=== PATIENT | male | born 1945 | race Caucasian/White ===

== ENCOUNTER 2017-10-10 14:16 | Emergency (ER) | payer BC ==
[2017-10-10 15:29] VITALS: BP 124/59
--- NOTE | 2017-10-10 15:47 | UC ---
Respiratory Complaint HPI - HPI Summary HPI Summary: 72 y/o male presents to the urgent care c/o productive cough w/ yellowish phlegm and low grade fever since Saturday10/07/2017. symptoms started w/ a common cold and sore throat, but now his chest is very congested. sore throat is mild 2 /10. He has not taking anything to alleviate symptoms. Pt denies SOB, chest pain , wheezing, abdominal pain, dizziness, N/v/D. - History of Current Complaint Hx Obtained From: Patient Onset/Duration: Gradual Onset, Lasting Days - 4 days, Still Present, Worse Since - yesterday Timing: Constant Severity Initially: Mild Severity Currently: Moderate Pain Intensity: 2 - sore throat Pain Scale Used: 0-10 Numeric Character: Cough: Productive, Sputum Description: - yellowish Aggravating Factors: Recumbent Position Associated Signs And Symptoms: Positive: Fever - low grade fever at home, URI, Nasal Congestion - Risk Factors Pulmonary Embolism Risk Factors: Negative Cardiac Risk Factors: Negative Pseudomonas Risk Factors: Negative Tuberculosis Risk Factors: Negative <Cheyanne Hanna - Last Filed: 10/10/17 16:38> <Susan Miller - Last Filed: 10/10/17 16:46> - History of Current Complaint Chief Complaint: UCRespiratory Stated Complaint: CHEST/HEAD COLD/ FEVER Time Seen by Provider: 10/10/17 15:43 - Allergies/Home Medications Allergies/Adverse Reactions: Allergies Allergy/AdvReac Type Severity Reaction Status Date / Time No Known Allergies Allergy Verified 10/10/17 15:33 Home Medications: Home Medications Atorvastatin* [Lipitor 40 MG*] 20 mg PO 1700 10/10/17 [History Confirmed ] Calcium Carbonate [Calcium] 500 mg PO DAILY 10/10/17 [History Confirmed 10/10/17 ] Cholecalciferol TAB* [Vitamin D TAB*] 1,000 unit PO DAILY 10/10/17 [History Confirmed 10/10/17] Levothyroxine Sodium [Levoxyl] 175 mcg PO DAILY 10/10/17 [History Confirmed 08/23] Multivitamin [Multivitamins] 1 cap PO DAILY 10/10/17 [History Confirmed 10/10/17 ] PMH/Surg Hx/FS Hx/Imm Hx Previously Healthy: Yes Endocrine History: Hypothyroidism, Dyslipidemia Other Endocrine History: Vitamin D defficiency - Surgical History Surgery Procedure, Year, and Place: Right ankle repair 2009 - Family History Known Family History: Positive: Hypertension - Social History Occupation: Retired Lives: With Family Alcohol Use: None Substance Use Type: None Smoking Status (MU): Never Smoked Tobacco <Cheyanne Hanna - Last Filed: 10/10/17 16:38> Review of Systems Constitutional: Negative Skin: Negative Eyes: Negative ENT: Sore Throat, Nasal Discharge, Sinus Congestion Respiratory: Cough - productive w/ yellowish phlegm Cardiovascular: Negative Gastrointestinal: Negative Genitourinary: Negative Motor: Negative Neurovascular: Negative Musculoskeletal: Negative Neurological: Negative Psychological: Negative Is Patient Immunocompromised?: No All Other Systems Reviewed And Are Negative: Yes <McgeeEvelynAnandCheyanne decker - Last Filed: 10/10/17 16:38> Physical Exam - Summary Physical Exam Summary: Vital Signs Reviewed: Yes General: well developed, well nourished male sitting in the examining table w/o any apparent distress Eyes: Positive: Conjunctiva Clear - PERRLA, EOMI, fundi grossly normal ENT: Positive: Normal ENT inspection, Hearing grossly normal, Pharynx normal, Nasal congestion - edematous and erythematous nasal mucosa, Nasal drainage - yellowish drainage, TMs normal. Negative: Tonsillar swelling, Tonsillar exudate Neck: Positive: Supple, Nontender, No Lymphadenopathy Respiratory: no orthopnea or dyspnea. Able to speak in full sentences, no retractions or accessory muscle use, no tripod position, stridor, or head bobbing. Positive breath sounds bilaterally, scattered rhonchi in the left posterior lung, no crackles or rales Cardiovascular: Positive: RRR, No Murmur, Pulses Normal, Brisk Capillary Refill Abdomen Description: Positive: Nontender, No Organomegaly, Soft. Negative: CVA Tenderness (R), CVA Tenderness (L) Bowel Sounds: Positive: Present Musculoskeletal Exam: Normal Musculoskeletal: Positive: Strength Intact, ROM Intact, No Edema Neurological Exam: Normal Psychological Exam: Normal Skin Exam: Normal Triage Information Reviewed: Yes Vital Signs: Initial Vital Signs Temp 99.1 F 10/10/17 15:21 Pulse 58 10/10/17 15:21 Resp 18 10/10/17 15:21 BP 124/59 07/05/18 15:21 Pulse Ox 96 10/10/17 15:21 <Cheyanne Hanna - Last Filed: 10/10/17 16:38> Vital Signs: Initial Vital Signs Temp 99.1 F 10/10/17 15:21 Pulse 58 10/10/17 15:21 Resp 18 10/10/17 15:21 BP 124/59 10/10/17 15:21 Pulse Ox 96 10/10/17 15:21 <Susan Miller - Last Filed: 10/10/17 16:46> Diagnostic Evaluation - Laboratory O2 Sat by Pulse Oximetry: 96 <Cheyanne Hanna - Last Filed: 10/10/17 16:38> Respiratory Course/Dx - Course Course Of Treatment: 72 y/o male presents to the urgent care c/o productive cough w/ yellowish phlegm and low grade fever since Saturday10/07/2017. symptoms started w/ a common cold and sore throat, but now his chest is very congested. sore throat is mild 2/10. He has not taking anything to alleviate symptoms. Pt denies SOB, chest pain, wheezing, abdominal pain, dizziness, N/v/D.Hx obtained. Pt w/ Positive breath sounds bilaterally, scattered rhonchi in the left posterior lung, no crackles or rales on exmination. O2Sat: 96%. Pt previous smokerm, stopped 1986. Chest X-ray ordered to r/o pneumonia. Impression: No cardiopulmonary disease observed as per radiologist. Pt with Acute bronchitis on examination. Pt Rx Z-mario PO and Tessalon PO to alleivate cough. Pt advised to increase fluid intake and eat well. if not improvement or worsening of symptoms to return to the urgent care or f/u with PCP for further management. pt understood and agreed with plan of care - Differential Dx/Diagnosis Differential Diagnosis/HQI/PQRI: Bronchitis, Influenza, Lower Resp Infection, Sinusitis, Other - URI, pharyngitis, pneumonia Provider Diagnoses: 1- Acute bronchitis. 2-Cough <Cheyanne Hanna - Last Filed: 10/10/17 16:38> Discharge - Sign-Out/Discharge Documenting (check all that apply): Discharge/Admit/Transfer - D/c home - Billing Disposition and Condition Condition: STABLE Disposition: Home <Cheyanne Hanna - Last Filed: 10/10/17 16:38> - Billing Disposition and Condition Condition: STABLE Disposition: Home <Susan Miller - Last Filed: 10/10/17 16:46> - Discharge Plan Condition: Stable Disposition: HOME Prescriptions: Azithromyxin MARIO (NF) [Z-Mario (Zithromax) 250 mg tabs #6] 2 tab PO .TODAY, THEN 1 DAILY #6 tab Benzonatate CAP* [Tessalon 100 MG CAP*] 100 mg PO TID #21 cap Patient Education Materials: Acute Bronchitis (ED) Referrals: [facility] [Outside] - 2 Days Additional Instructions: 1-Please take full course of antibiotic to avoid resistance. 2-Take Tessalon PO tabs as directed and use the albuterol inhaler to alleviate cough. Increase fluid intake, rest and eat well. 3- If symptoms do not improve or worsen or your develop SOB with fever and severe wheezing please go immediately to the ER further evaluation and treatment. 4- F/u with your PCP in 2-3 days for further management on your Asthma Attestation Statement User Type: Provider - I was available for consult. This patient was seen by the [facility]. The patient was not presented to, seen by, or examined by me. -Megan <Susan Miller - Last Filed: 10/10/17 16:46>
--- NOTE | 2017-10-10 16:21 | RAD ---
INDICATION: Fever and cough x4 days COMPARISON: Chest x-ray November 18, 2005 TECHNIQUE: PA and lateral views of the chest were obtained. FINDINGS: The heart and mediastinum are normal in size and contour. The lungs are grossly clear. There is no evidence of large pleural effusion. Visualized bones are normal for the patient's age. There is no radiographic evidence of free air beneath the diaphragm IMPRESSION: No radiographic evidence of acute cardiopulmonary disease.
== END 2017-10-10 16:55 | disposition home or self-care (01) ==
LOC: UCEAST 14:16
DX: J20.9 Acute bronchitis, unspecified (principal); R05 Cough; E03.9 Hypothyroidism, unspecified; E78.5 Hyperlipidemia, unspecified; E55.9 Vitamin D deficiency, unspecified; Z82.49 Family history of ischemic heart disease and other diseases of the circulatory system
CPT/HCPCS: 71046; 99202; G0463